=== PATIENT | female | born 1990 | race Caucasian/White ===

== ENCOUNTER → 2016-05-21 09:01 | Outpatient (CLI) | payer MEDICAID ==
[~2016-05-21 09:01] MED LIST: ACETAMINOPHEN325 MG PO; IBUPROFEN800 MG PO; PRENATAL COMPLE1 TAB PO
--- NOTE | 2016-05-21 10:36 | NUR ---
Nutrition education for MINO: Pt reports stopping all surgary drinks; pt is drinking unsweet tea and water now. Pt eats 3 meals a day; however, pt has a large gap between lunch and dinner meals. Pt goes to the gym 3 days a week. Pt eats nonstarchy vegetables most days. Reviewed CHO containing foods and the affect CHO have on glucose. Stressed the importance of eating regularly scheduled meals to keep glucose under control. Reviewed portion sizes of common CHO foods. Reviewed sample menus with emphasis on CHO. Instructed pt on the use of an AccuChek glucometer. FSBS: 127 mg/dl - post-prandial Provided pt with printed diet information and RDN name and phone number. Pt with good understanding of information provided. RDN will be available if needed. Thank you for the consult.
[2016-07-31 09:13] VITALS: BMI 35.0
== END | disposition home or self-care (01) ==
LOC: D.FANS 09:00
DX: O24.419 Gestational diabetes mellitus in pregnancy, unspecified control (principal)

== ENCOUNTER → 2016-07-23 09:32 | Outpatient (CLI) | payer MEDICAID ==
[2016-07-23 10:47] LABS: APPEARANCE CLEAR (CLEAR); COLOR YELLOW (YELLOW); LEUKOCYTE ESTERASE TRACE (NEGATIVE); SPECIFIC GRAVITY 1.015 (1.005-1.020)
[2016-07-23 10:48] LABS: BILIRUBIN NEGATIVE (NEGATIVE); GLUCOSE 250 mg/dL (NEGATIVE); KETONE NEGATIVE (NEGATIVE); NITRITE NEGATIVE (NEGATIVE); PROTEIN 1+ mg/dL (NEGATIVE); RED CELLS - URINE 0-5 /hpf (0-5); UROBILINOGEN NORMAL (NORMAL)
[2016-07-23 10:49] LABS: BACTERIA MODERATE /hpf (NONE SEEN)
[2016-07-23 10:52] LABS: MUCUS >1+ /lpf (NONE SEEN)
== END | disposition home or self-care (01) ==
LOC: D.LDO 09:32
PROVIDERS: Specialist
DX: O26.899 Other specified pregnancy related conditions, unspecified trimester (principal); R11.2 Nausea with vomiting, unspecified; M54.5 Low back pain

== ENCOUNTER 2016-07-29 05:00 | Inpatient (IN) | payer MEDICAID ==
[~2016-07-29] VITALS: Ht 162.6 cm; Wt 92.5 kg
[2016-07-29] MEDS ORDERED: ACETAMINOPHEN325 MG PO (05:41)
[2016-07-29] MEDS ORDERED: PRENATAL COMPLE1 TAB PO (05:41)
[2016-07-29 05:42] VITALS: BP 135/83; BMI 35.1
[2016-07-29 07:16] LABS: HEMATOCRIT 43.8 % (36.0-48.0); HEMOGLOBIN 14.7 g/dL (12-16); MCH 31.1 pg (26.0-34.0); MCHC 33.6 g/dL (31.0-37.0); MCV 92.6 fL (80.0-100.0); MEAN PLATELET VOLUME 12.6 fL (7.4-10.4); RBC 4.73 10x6/uL (4.00-5.40); RDW 13.8 % (11.5-14.5); WBC 10.9 10x3/uL (4.8-10.8)
[2016-07-29 07:26] LABS: UDS - AMPHET NEGATIVE QUAL (NEGATIVE); UDS - BARB NEGATIVE QUAL (NEGATIVE); UDS - BENZO NEGATIVE QUAL (NEGATIVE); UDS - COCAINE NEGATIVE QUAL (NEGATIVE); UDS - METH NEGATIVE QUAL (NEGATIVE); UDS - OPIATE NEGATIVE QUAL (NEGATIVE); UDS - PCP NEGATIVE QUAL (NEGATIVE); UDS - THC NEGATIVE QUAL (NEGATIVE)
[2016-07-29 08:08] LABS: APPEARANCE HAZY (CLEAR); BACTERIA FEW /hpf (NONE SEEN); BILIRUBIN NEGATIVE (NEGATIVE); COLOR YELLOW (YELLOW); GLUCOSE NEGATIVE (NEGATIVE); KETONE NEGATIVE (NEGATIVE); LEUKOCYTE ESTERASE 2+ (NEGATIVE); MUCUS <1+ /lpf (NONE SEEN); NITRITE NEGATIVE (NEGATIVE); PROTEIN NEGATIVE (NEGATIVE); UROBILINOGEN NORMAL (NORMAL)
--- NOTE | 2016-07-29 19:15 | NUR ---
PT TO BED. ORIENTED TO ROOM,CALL LIGHT AND PHONE. PT INFORMED THAT MD WILL BE CALLED FOR ORDER FOR MOTRIN FOR PT'S C/O LOWER BACK ABD PAIN. PT DENIES NEEDS OTHER THAN A CUP OF ICE. PT'S SIG OTHER HAS BROUGHT HER DINNER FROM OUTSIDE OF THE HOSPITAL. MULTIPLE GUESTS AT BEDSIDE.
--- NOTE | 2016-07-29 19:30 | NUR ---
DR CURTIS CALLED PER Mary JIMENEZ RN FOR ORDER FOR MOTRIN TO BE GIVEN. GIVES ORDER PT MAY HAVE MOTRIN 600MG PO Q 6HRS FOR BACK PAIN/ABD CRAMPING.
--- NOTE | 2016-07-29 19:55 | NUR ---
MOTRIN 600MG PO GIVEN PER MD ORDERS. SEE EMAR.FAMILY MEMBERS REMAIN AT BEDSIDE.
--- NOTE | 2016-07-29 21:00 | NUR ---
ROUNDS MADE. PT CURRENTLY CONTINUING TO NURSE . PAIN AND NEEDS ASSESSED. PT DENIES NEEDS. REPORTS PAIN 05/24. 2 GUESTS TO ROOM AT THIS TIME.
--- NOTE | 2016-07-29 22:00 | NUR ---
ROUNDS MADE. PT SITTING UP IN BED EATING THE DINNER THAT SHE SIG OTHER BROUGHT HER AND VISITING W/GUESTS AT BEDSIDE. PT ONLY REQUEST A CUP OF ICE. ICE SERVED. RATES PAIN 2/10. THIS RN TO RETURN LATER TO OBTAIN V/S AND PERFORM COMPLETE SHIFT ASSESSMENT.
[2016-07-29 23:00] VITALS: BP 138/95
--- NOTE | 2016-07-29 23:00 | NUR ---
THIS RN TO BEDSIDE FOR ROUNDING. PT AND SIG OTHER BOTH SITTING UP IN BED W/ UP IN SIG OTHER'S ARMS. SIG OTHER OUT OF BED. SHIFT ASSESSMENT W/V/S OBTAINED. SEE FLOWSHEET. BREATHSOUNDS CL/=, BOWEL SOUNDS PRESENT X 4. FUNDUS FIRM,U/1, MODERATE LOCHIA NOTED. PEDAL PULSE PRESENT X 2. PT REPORTS BACKPAIN 2-3/10. DEMEROL OFFERED. PT ACCEPTS. TEACHING PROVIDED THAT BACK PAIN IS A COMMON C/O AFTER EPIDURAL. THAT AMBUALTING WILL HELP WITH DISCOMFORT. CLEAN GOWN,EXTRA PANTIES,PADS TOWELS AND RAGS PROVIDED. PT DENIES FURTHER NEEDS AT THIS TIME. EMAR FOR DOC OF DEMEROL 50MG PO GIVEN.
--- NOTE | 2016-07-30 | NUR ---
ROUNDS MADE. PT AND SIG OTHER BOTH SITTING UP IN BED W/ UP IN ARMS. BOTH LEFT UNDISTURBED AT THIS TIME.
--- NOTE | 2016-07-30 01:49 | NUR ---
NBN NURSE CALLS UNITR EQUESTING INFANT BE BROUGHT BACKTO NURSERY. THIS RN TO BEDSIDE. PT CURRENTLY LYING AWAKE IN BED W/INFANT UP IN ARMS W/SHIRT UNBUTTONED. PT STATES "I DON'T KNOW HOW TO SWADDLE HER BACKUP." INFANT RECEIVED FROM MOTHER. SHIRT BUTTONED,HAT PLACED ON . SWADDLED X 2 AND PLACED IN CRIB. QUIET AT THIS TIME. PT PAIN AND NEEDS ASSESSED. PT STATES "I'M FINE RIGHT NOW." NO NEEDS VOICED. TRANSPORTED VIA CRIB TO N. PT ALLOWED TO REST UNDTIL NEXT FEEDING.
--- NOTE | 2016-07-30 04:20 | NUR ---
INFANT TO ROOM VIA CRIB PER NBN NURSE AT THIS TIME FOR NURSING. NO NEEDS REPORTED PER PT AT THIS TIME.
--- NOTE | 2016-07-30 05:00 | NUR ---
PT RINGS CALL LIGHT. THIS RN TO BEDSIDE. PT CURRENTLY LYING IN BED W/ UP IN ARMS. PT REPORTS SHE HAS FINISHED NURSING AND WISHES BE RETURNED TO NBN. INFANT RECEIVED FROM PT. PLACED IN CRIB. SHIRT PLACED BACK ON AND SWADDLED X 2. PT'S NEEDS AND PAIN ASSESSED. PT REPORTS ABD CRAMPING 2/10. REQUEST MOTRIN AND FRESH ICE WATER. INFANT RETURNED TO NBN VIA CRIB.
--- NOTE | 2016-07-30 05:13 | NUR ---
PT RETURNS FROM BR AFTER VOIDING. BACK TO BED. MOTRIN 600MG PO GIVEN PER MD ORDERS. SEE EMAR. FRESH ICE WATER SERVED. NO FURTHER NEEDS AT THIS TIME.
--- NOTE | 2016-07-30 06:10 | NUR ---
ROUNDS MADE. PT RESTING QUIETLY TO RT SIDE W/EYES CLOSED. RESP EVEN. PT LEFT UNDISTURBED AT THIS TIME.
[2016-07-30 06:14] LABS: RAPID PLASMA REAGIN Non Reactive (Non Reactive)
[2016-07-30 06:56] LABS: HEMATOCRIT 39.5 % (36.0-48.0); HEMOGLOBIN 13.2 g/dL (12-16); MCHC 33.4 g/dL (31.0-37.0); MCV 92.7 fL (80.0-100.0); MEAN PLATELET VOLUME 11.9 fL (7.4-10.4); RBC 4.26 10x6/uL (4.00-5.40)
[2016-07-30 07:00] LABS: WBC 13.9 10x3/uL (4.8-10.8)
--- NOTE | 2016-07-30 07:02 | OP ---
PATIENT NAME: VENICE CABRERA MEDICAL RECORD: [id number] LOCATION:[id number] ADMISSION DATE:07/29/16 SURGEON: KESHIA CURTIS MD DATE OF OPERATION: 07/29/2016 Delivery Note Spontaneous vaginal delivery of female infant weighing 6 pounds 6 ounces, 9 and 9 Apgars with epidural anesthesia. No episiotomy. First degree perineal laceration repaired using 2-0 chromic suture. Spontaneous delivery of intact-appearing placenta. ESTIMATED BLOOD LOSS: 400 cc. COMPLICATIONS OF DELIVERY: None. Cord pH drawn and is pending. TRANSINT:[id number] Voice Confirmation ID: [id number] DOCUMENT ID: [id number] KESHIA CURTIS MD at 0702 CC: [id number] DICTATION DATE: 07/29/16 165 SUPERVISOR RIDES: 07/30/16 0128 ADM IN [facility] [address] [place] [address]
[2016-07-30 07:50] VITALS: BP 132/78
--- NOTE | 2016-07-30 07:50 | NUR ---
ASSESSMENT DONE. PT SITTING UP IN HOLDING INFANT. DENIES WANTING ANY PAIN MEDICATION. FUNDUS UU/FIRM. SCANT LOCHIA WITH MASSAGE- NO CLOTS.
--- NOTE | 2016-07-30 08:44 | NUR ---
Earline Newby 07/30/16 LE@ 8:20 S: Patient states is going ok, sometimes baby will come off, when being latched. States she is tired today compared to yesterday. O: Patient sitting up in bed, television on, light dim, and infant in nursery. does take time and patience in the beginning. is a learning experience for both mother and , give it time. If infant comes off the breast, position her again and let her self-latch. Provided and explained handout on feeding cues ( breastfed babies should feed on demand, upon showing feeding cues), positioning ( explained how to verify is latched correctly, turn tummy to tummy, nose opposite of nipple, allow infant to self-latch), growth spur, skin to skin, waking a sleeping baby, what to expect the first week, engorgement, supply and demand, and breastmilk composition. Encouraged to continue to offer the breast for every feeding this will help with establishing her milk supply, make sure she is latched correctly for every feeding, please ask for help if needed. Provided work cell number, call as needed. Asked if any questions or concerns, declined, thanked CLC for helping. A: New mom, first time , tired. P: Continue to support exclusively during hospital visit. RYAMOND Lazaro
--- NOTE | 2016-07-30 12:00 | NUR ---
UP AND ABOUT IN ROOM. IN ROOM. PT STATES THAT SHE WOULD RATHER STAY IN PT FOR TODAY SINCE IS NOT BEING DISCHARGED. DENIES WANTING ANY MEDICATION FOR PAIN OR DISCOMFORT. PT STATES SHE SHOWERED EARLY THIS AM. LINENS CHANGED AT THIS TIME.
[2016-07-30 16:56] VITALS: BP 127/86
--- NOTE | 2016-07-30 16:57 | NUR ---
denies needs. sitting up in bed holding . denies needs- denies pain. ice given.
[2016-07-30 19:06] VITALS: BP 138/86
--- NOTE | 2016-07-30 19:06 | NUR ---
AWAKE AND ORIENTED. SITTING UP IN BED WITH HOB AT 90 DEGREES. FUNDUS FIRM U/3 AND LOCHIA RUBRA SCANT. BOWEL SOUNDS ACTIVE AND BREATH SOUNDS CLEAR. PT. REPORTS PASSING FLATUS AND RECENT BOWEL MOVEMENT. RATES PERINEAL DISCOMFORT A 2 OF 10 ON PAIN SCALE. NO REDNESS NOR C/O PAIN IN LOWER EXTREMITIES. SALINE LOCK NOTED IN RT WRIST. PT. REQUESTING SALINE LOCK DISCONTINUED. INFORMED PT. WOULD REVIEW RECENT H/H ON CHART PRIOR TO TAKING OUT SALINE LOCK. VISITOR AT BEDSIDE HOLDING INFANT.
--- NOTE | 2016-07-30 19:17 | NUR ---
IBUPROFEN GIVEN PT. REQUESTED. REVIEWED WITH PT. RECENT H/H AND PT. REQUEST SALINE LOCK REMOVED. SALINE LOCK REMOVED WITH INTACT CATH. TIP NOTED. ICE WATER PROVIDED TO PT. TALKING ABOUT EXPERIENCES WITH FRIEND. DENIES ANY FURTHER NEEDS.
--- NOTE | 2016-07-30 19:59 | NUR ---
PT. REPORTS THAT PAIN MED WAS EFFECTIVE AND SHE IS PAIN FREE AT THIS TIME. VISITORS IN ROOM AT PRESENT.
--- NOTE | 2016-07-30 22:05 | NUR ---
PT. ATTEMPTING TO BREASTFEED. NBN NURSE ASSISTING. CURRENTLY SITTING UP IN BED. VISITOR IN ROOM. NO STATED NEEDS AT THIS TIME.
--- NOTE | 2016-07-30 23:15 | NUR ---
PT. SITTING UP TALKING WITH VISITOR. DENIES ANY NEEDS. REMAINS IN ROOM.
--- NOTE | 2016-07-31 00:38 | NUR ---
PT. C/O ABD. CRAMPING THAT SHE RATES A 3 OF 10 ON PAIN SCALE. IBUPROFEN GIVEN REQUESTED PER PT. HOLDING AT PRESENT. VISITOR SLEEPING ON SOFA. PT. DESIRES FOR INFANT TO BE RETURNED TO N. INFORMED N NURSE IN DELIVERY PRESENTLY BUT SHE WOULD BE INFORMED. ICE WATER PROVIDED TO PT.
--- NOTE | 2016-07-31 00:55 | NUR ---
INFANT RETURNED TO [facility]. LIGHTS IN ROOM DIMMED PER PT. REQUEST. PT. STATES SHE DESIRES TO SLEEP.
--- NOTE | 2016-07-31 02:38 | NUR ---
LYING ON RT SIDE. RESPIRATIONS REGULAR.
--- NOTE | 2016-07-31 04:27 | NUR ---
LYING ON RT SIDE. RESPIRATIONS REGULAR. VISITOR LYING ON SOFA ASLEEP.
--- NOTE | 2016-07-31 06:10 | NUR ---
AT PRESENT. PT. RELATES THAT SHE WAS ABLE TO GET SOME SLEEP AND FELT BETTER. DENIES ANY NEEDS AT THIS TIME.
[2016-07-31 07:45] VITALS: BP 134/84
--- NOTE | 2016-07-31 07:45 | NUR ---
RECEIVED PT SITTING UP IN BED. AWAKE. AAA X 3. VSS. HRRR WITHOUT AUDIBLE MURMUR. BBS CLEAR. BS X 4. ABDOMEN SOFT/NON-DISTENDED. FUNDUS FIRM AT U/U. RUBRA LOCHIA SMALL AMT. NO CLOTS OR HEAVY BLEEDING PER PT STATES. NEG HOMANS' SIGN. PPP. SLIGHT NON-PITTING EDEMA NOTED TO FEET/ANKLES. PT C/O ABDOMINAL CRAMPING OF "1-2". DECLINES PAIN MED AT THIS TIME. PT DENIES NEEDS OR C/O. QUESTIONS WHEN PT WILL BE DISCHARGED TODAY. STATES "MY HAS TO BE AT WORK AT 8:30". PT INFORMED THAT DISCHARGE ORDERS TO BE RECEIVED BY BOTH DR CURTIS AND IT SECURITY PROJECT MANAGER AND THAT DISCHARGE WILL PROBABLY NOT HAPPEN BY THAT TIME. PT VERBALIZES UNDERSTANDING. PT INFORMED THAT STAFF WILL BE QUICK POSSIBLE TO HAVE DISCHARGE DONE SOON ORDERS ARE RECEIVED.
[2016-07-31] MEDS ORDERED: IBUPROFEN800 MG PO (08:04)
[2016-07-31 09:13] VITALS: Ht 162.6 cm; Wt 92.5 kg
--- NOTE | 2016-07-31 09:20 | NUR ---
DISCHARGE INSTRUCTIONS GIVEN TO PT. PT VERBALIZES UNDERSTANDING OF ALL INSTRUCTIONS. COPIES GIVEN TO PT. RX FOR MOTRIN GIVEN TO PT. TDAP 0.5 ML GIVEN IM TO RIGHT DELTOID. BANDAID TO SITE. PT JANET WELL.
--- NOTE | 2016-07-31 09:44 | NUR ---
Earline Newby 07/31/16 S: Patient states she feels great, able to go home, infant has been doing great with . O: Patient and FOB changing infant clothes to leave, just discharged. Encouraged client to continue to latch infant for every feeding, this will help with establishing her milk supply. Supply and demand what baby takes out, your body will make more of. Explain what to expect during the first week. It's normal for breastfed babies to wake up every 1 1/2- to 2 hours to eat. Call for help at the first sign of nipple sore, explain growth spurs, how to help prevent engorgement. and why it's so important to feed on demand. It's ok to feel overwhelmed, we all do at some point. Just take nursing day by day. Please reach out for help as needed. Asked if they had any questions or concerns, all declined. Provided work cell number, call as need. A: Client appears confident with , states no concerns about . P: Continue to support exclusively . Xiomara Huddleston, CLC
--- NOTE | 2016-07-31 10:15 | NUR ---
PT READY FOR DISCHARGE. DISCHARGED WITH VIA WHEELCHAIR PER AUXILIARY STAFF TO PRIVATE VEHICLE.
== END 2016-07-31 10:15 | disposition home or self-care (01) | DRG 775 ==
LOC: D.LD 05:00
PROVIDERS: ADMIT Obstetrics & Gynecology
PROC: 10E0XZZ Delivery of Products of Conception, External Approach (ICD-10-PCS; principal; 2016-07-29)
PROC: 0HQ9XZZ Repair Perineum Skin, External Approach (ICD-10-PCS; 2016-07-29)
DX: O24.429 Gestational diabetes mellitus in childbirth, unspecified control (principal); Z3A.39 39 weeks gestation of pregnancy; Z37.0 Single live birth; O70.0 First degree perineal laceration during delivery; Z87.891 Personal history of nicotine dependence

== ENCOUNTER → 2018-02-16 13:43 | Outpatient (CLI) | payer OTHER ==
[2016-07-31 09:13] VITALS: BMI 35.0
== END | disposition home or self-care (01) ==
LOC: D.US 13:30
DX: N63.22 Unspecified lump in the left breast, upper inner quadrant (principal)

== ENCOUNTER 2020-01-07 20:01 | Emergency (ER) | payer BC ==
[~2020-01-07] VITALS: Ht 162.6 cm; Wt 90.0 kg
[2020-01-07 20:22] VITALS: Ht 162.6 cm; Wt 90.0 kg
[2020-01-07] MEDS ORDERED: PROTONIX20 MG PO (20:23)
[2020-01-07] MEDS ORDERED: LISINOPRIL5 MG PO (20:23)
[2020-01-07] MEDS ORDERED: VOLTAREN75 MG PO (21:07)
[2020-01-07] MEDS ORDERED: METHOCARBAMOL500 MG PO (21:07)
[2020-01-07 21:46] VITALS: BP 125/77
== END 2020-01-07 21:46 | disposition home or self-care (01) ==
LOC: D.ER 20:01
DX: S16.1XXA Strain of muscle, fascia and tendon at neck level, initial encounter (principal); M54.2 Cervicalgia; M25.519 Pain in unspecified shoulder; E07.9 Disorder of thyroid, unspecified; I10 Essential (primary) hypertension; J45.909 Unspecified asthma, uncomplicated; K21.9 Gastro-esophageal reflux disease without esophagitis; V89.2XXA Person injured in unspecified motor-vehicle accident, traffic, initial encounter; Y93.9 Activity, unspecified; Y92.9 Unspecified place or not applicable